=== PATIENT | male | born 1960 ===

== ENCOUNTER 2024-01-27 08:45 | Day surgery (SDC) | payer OTHER ==
[2024-01-27] MEDS ORDERED: LACTATED RINGERS 1,000 ML BAG ONE (11:20)
[2024-01-27] MEDS ORDERED: PROPOFOL 10 MG/ML 20 ML VIAL IV ONE (11:58)
--- NOTE | 2024-01-30 15:56 | PCN ---
PROCEDURE NOTE REQUESTING PHYSICIAN: Dr. Pike BRIEF HISTORY: The patient is a 63-year-old pleasant white male, scheduled for an elective upper endoscopy as a part of evaluation of longstanding history of GERD. He was recently started on Prilosec 20 mg daily and his symptoms are significantly improved. He is scheduled for an upper endoscopy to rule out complicated reflux disease. PROCEDURE PERFORMED: Esophagogastroduodenoscopy with biopsy. PREOPERATIVE DIAGNOSIS: Longstanding history of gastroesophageal reflux disease. ANESTHESIA: IV sedation per Anesthesia. DESCRIPTION OF PROCEDURE: After informed consent was obtained from the patient, he was brought into the endoscopy unit. IV conscious sedation was administered by Anesthesia under continuous monitoring initially. The Olympus GIF-180 video endoscope was inserted into the mouth, esophagus intubated without any difficulty, and was gradually advanced into the stomach and duodenum, and carefully examined. Bulb and the second part of the duodenum appeared normal. The scope at this time was withdrawn through the stomach, adequately insufflated with air, and upon careful examination, there was mild mottling of the mucosa in the antrum of the stomach, which was biopsied. The body of the stomach appeared normal. On retroflexion, cardia and fundus appeared normal. Scope was then withdrawn to the esophagus. The GE junction was located at 42 cm from the incisors. There was a small hiatal hernia noted. The GE junction appeared regular with no erythema, erosions or ulcerations. Entire length of esophagus appeared normal. There were no erosions or ulcerations seen. No evidence of Faustin's esophagus. Rest of the esophagus appeared normal and the patient tolerated the procedure well. IMPRESSION: 1. Small hiatal hernia, but no evidence of esophagitis or Faustin's esophagus. 2. Mild antral gastritis. RECOMMENDATIONS: Findings of this examination were discussed with the patient as well as his family. He was advised to follow up with the biopsy results. He will continue with omeprazole 20 mg daily and follow anti-reflux measures. MMODL / IJN: [id number] /
== END 2024-01-27 12:50 ==
LOC: ORWHC2ENDO 08:45
PROVIDERS: ATTEND Internal Medicine Gastroenterology
DX: K29.50 Unspecified chronic gastritis without bleeding (principal); K44.9 Diaphragmatic hernia without obstruction or gangrene; K21.9 Gastro-esophageal reflux disease without esophagitis; I10 Essential (primary) hypertension; Z87.891 Personal history of nicotine dependence; Z79.899 Other long term (current) drug therapy
CPT/HCPCS: 43239; 88305